=== PATIENT | female | born 1960 | race Caucasian/White ===

== ENCOUNTER 2019-09-17 07:48 | Day surgery (SDC) | payer OTHER | END 2019-09-17 15:00 | disposition home or self-care (01) | LOC: AMB-ENDOS 07:48 → ADM 12:45 → AMB-ENDOS 15:00 | PROVIDERS: ATTEND Colon & Rectal Surgery | DX: D12.8 Benign neoplasm of rectum (principal); K64.1 Second degree hemorrhoids ==